=== PATIENT | male | born 2000 | race Caucasian/White ===

== ENCOUNTER 2021-04-20 02:48 | Emergency (ER) | payer OTHER ==
[~2021-04-20] VITALS: Ht 175.3 cm; Wt 84.1 kg
[2021-04-20 02:55] VITALS: TEMP 97.1
[2021-04-20 04:14] VITALS: BP 150/81; PULSE 87
== END 2021-04-20 04:14 | disposition home or self-care (01) ==
LOC: COL.ER 02:48
DX: S61.216A Laceration without foreign body of right little finger without damage to nail, initial encounter (principal); S51.811A Laceration without foreign body of right forearm, initial encounter; Z23 Encounter for immunization; W25.XXXA Contact with sharp glass, initial encounter